=== PATIENT | female | born 1995 | race African-American/Black ===

== ENCOUNTER 2017-12-08 11:18 | Emergency (ER) | payer BC, OTHER ==
[~2017-12-08] VITALS: Ht 175.3 cm; Wt 76.1 kg
[2017-12-08 11:21] VITALS: TEMP 36.6; Ht 175.3 cm; Wt 76.1 kg
[2017-12-08] MEDS ORDERED: DOCU100C31 PO (11:55)
[2017-12-08] MEDS ORDERED: CHOL400T PO (11:55)
[2017-12-08] MEDS ORDERED: FERR1TAB23 PO (11:55)
--- NOTE | 2017-12-08 12:02 | EMERGENCY ROOM VISIT NOTE ---
History Report prepared by Karla: Marshal Farley Under the Supervision of: Dr. Nixon Griffin M.D. First contact with patient: 11:37 Chief Complaint: OTHER COMPLAINT Stated Complaint: FATIGUE, LIGHT HEADED, NAUSEA Nursing Triage Summary: Pt c/o "symptoms of anemia", fatigue, nausea, lightheaded spells. reports hx of anemia History of Present Illness The patient is a 22 year old black female with no past medical or surgical history who presents to the ED with a cc of persistent fatigue and light headedness beginning a couple of months ago. Positive nausea and abdominal cramping mostly likely related to her menstrual period. Negative history of sickle cell anemia, use of blood thinners, recent sexual intercourse, and trauma. She was seen at [facility] last week and was told that she has low hemoglobin and hematocrit levels. She notes that she is currently on her periods and goes through about 3-4 tampons/pads per day, and her menstrual periods usually last 3 -5 days. Source of History: patient Onset: a couple of months ago Position: other (global) Quality: other (fatigue and light headedness) Timing: other (persistent) Associated Symptoms: + nausea, + abdominal pain Review of Systems See HPI for pertinent positives and negatives. A total of ten systems were reviewed and were otherwise negative. Family History Heart disease Hypertension Social History Smoking Status: Never Smoker Marital Status: single Occupation Status: [employer] student Current/Historical Medications Scheduled Cholecalciferol (Vitamin D), 400 UNITS PO DAILY Docusate Sodium (Docusate Sodium), 100 MG PO DAILY Ferrous Sulfate (Iron), 325 MG PO DAILY Allergies Coded Allergies: No Known Allergies (Unverified , 12/08/17) Physical Exam Vital Signs Date Time Temp Pulse Resp B/P (MAP) Pulse Ox O2 Delivery O2 Flow Rate FiO2 12/08/17 14:30 70 18 124/78 100 Room Air 12/08/17 13:43 77 12/08/17 13:30 68 18 127/79 100 Room Air 12/08/17 13:29 100 Room Air 12/08/17 11:21 36.6 78 18 143/78 100 Room Air Physical Exam GENERAL: Awake, alert, well-appearing, NAD HENT: Normocephalic, atraumatic. EYES: Normal conjunctiva. Sclera non-icteric. NECK: Supple. No nuchal rigidity. FROM. RESPIRATORY: CTAB, no rhonchi, wheezing, crackles CARDIAC: RRR, no MRG ABDOMEN: Suprapubic discomfort. Soft, ND, BS+ MSK: No chest wall TTP, no LE edema NEURO: GCS 15, CN 2-12 intact, moves all 4s on command SKIN: No rash or jaundice noted. Medical Decision & Procedures Laboratory Results 12/08/17 12:15 Red Blood Count 4.47, Mean Corpuscular Volume 64.9, Mean Corpuscular Hemoglobin 17.9, Mean Corpuscular Hemoglobin Concent 27.6, Mean Platelet Volume , Neutrophils (%) (Auto) 55.9, Lymphocytes (%) (Auto) 34.6, Monocytes (%) (Auto) 6.6, Eosinophils (%) (Auto) 2.3, Basophils (%) (Auto) 0.4, Neutrophils # (Auto) 3.13, Lymphocytes # (Auto) 1.94, Monocytes # (Auto) 0.37, Eosinophils # (Auto) 0.13, Basophils # (Auto) 0.02 12/08/17 12:15 Test 12/08/17 12:15 12/08/17 13:03 12/08/17 13:40 White Blood Count 5.60 K/uL (4.8-10.8) Red Blood Count 4.47 M/uL (4.2-5.4) Hemoglobin 8.0 g/dL (12.0-16.0) Hematocrit 29.0 % (37-47) Mean Corpuscular Volume 64.9 fL (80-100) Mean Corpuscular Hemoglobin 17.9 pg (25-34) Mean Corpuscular Hemoglobin Concent 27.6 g/dl (32-36) Platelet Count 332 K/uL (130-400) Mean Platelet Volume fL (7.4-10.4) Neutrophils (%) (Auto) 55.9 % Lymphocytes (%) (Auto) 34.6 % Monocytes (%) (Auto) 6.6 % Eosinophils (%) (Auto) 2.3 % Basophils (%) (Auto) 0.4 % Neutrophils # (Auto) 3.13 K/uL (1.4-6.5) Lymphocytes # (Auto) 1.94 K/uL (1.2-3.4) Monocytes # (Auto) 0.37 K/uL (0.11-0.59) Eosinophils # (Auto) 0.13 K/uL (0-0.5) Basophils # (Auto) 0.02 K/uL (0-0.2) RDW Standard Deviation fL (36.4-46.3) RDW Coefficient of Variation % (11.5-14.5) Immature Granulocyte % (Auto) 0.2 % Immature Granulocyte # (Auto) 0.01 K/uL (0.00-0.02) Platelet Estimate NORMAL Giant Platelets 2+ Polychromasia 1+ Hypochromasia PRESENT Microcytosis PRESENT Ovalocytes 1+ Acanthocytes 1+ Prothrombin Time 10.7 SECONDS (9.0-12.0) Prothromb Time International Ratio 1.0 (0.9-1.1) Activated Partial Thromboplast Time 24.7 SECONDS (21.0-31.0) Partial Thromboplastin Ratio 1.0 Anion Gap 8.0 mmol/L (3-11) Est Creatinine Clear Calc Drug Dose 155.1 ml/min Estimated GFR () > 150.0 Estimated GFR (Non- 130.3 BUN/Creatinine Ratio 21.7 (10-20) Calcium Level 9.4 mg/dl (8.5-10.1) Total Bilirubin 0.6 mg/dl (0.2-1) Direct Bilirubin 0.2 mg/dl (0-0.2) Aspartate Amino Transf (AST/SGOT) 15 U/L (15-37) Alanine Aminotransferase (ALT/SGPT) 16 U/L (12-78) Alkaline Phosphatase 42 U/L (45-117) Total Protein 8.6 gm/dl (6.4-8.2) Albumin 4.1 gm/dl (3.4-5.0) Thyroid Stimulating Hormone (TSH) 2.420 uIu/ml (0.300-4.500) Urine Color YELLOW Urine Appearance CLEAR (CLEAR) Urine pH 7.0 (4.5-7.5) Urine Specific Rombauer 1.009 (1.000-1.030) Urine Protein NEG (NEG) Urine Glucose (UA) NEG (NEG) Urine Ketones NEG (NEG) Urine Occult Blood 2+ (NEG) Urine Nitrite NEG (NEG) Urine Bilirubin NEG (NEG) Urine Urobilinogen NEG (NEG) Urine Leukocyte Esterase NEG (NEG) Urine WBC (Auto) 0 /hpf (0-5) Urine RBC (Auto) >30 /hpf (0-4) Urine Hyaline Casts (Auto) 0 /lpf (0-5) Urine Epithelial Cells (Auto) 5-10 /lpf (0-5) Urine Bacteria (Auto) NEG (NEG) Urine Test NEG (NEG) Iron Level 190 mcg/dl (35-150) Total Iron Binding Capacity 380 mcg/dl (250-450) Ferritin 5.7 ng/ml (8.0-388.0) Laboratory results reviewed by me ECG Indication: other (fatigue and light headed) Rate (beats per minute): 67 Rhythm: normal sinus Findings: other (Normal intervals, normal axis, no STS changes or TWI) Change: Patient's electrocardiogram interpreted by me. ED Course 1137: The patient was evaluated in room B11. A complete history and physical exam was performed. 1320: I discussed the patient's case with Dr. Cook, Hematology, and he recommended the studies to get, and he is going to follow up with the patient as an outpatient. 1349: I reevaluated the patient. Discussed results and discharge instructions: she verbalized understanding and agreement. The patient is ready for discharge. Medical Decision The patient is a 22 year old black female with no past medical or surgical history who presents to the ED with a cc of persistent fatigue and light headedness beginning a couple of months ago. Differential diagnosis: Etiologies such as benign positional vertigo, dehydration, hypovolemia, anemia, tumor, infection, hypoglycemia, electrolyte abnormalities, cardiac sources, intracerebral event, toxicologic, neurologic, as well as others were entertained. Patient was seen and evaluated the bedside. Patient has complained of some chronic fatigue and lightheadedness. Patient was seen and evaluated at [facility]. Patient was referred here due to concern with her blood counts. I did obtain these findings. The patient did have a CBC as well as some iron studies any peripheral smear. Patient's RYANN globin was 7.1. Patient did have a low ferritin. Patient's smear did show target cells and teardrop cells. Patient did have repeat blood work completed here. The patient 's hemoglobin was 8. The patient does have some vaginal bleeding hour this sounds chronic in nature. Patient patient has only been going through 3 pads per day. Patient likely does have an element of symptom medic anemia. The patient does have a low MCV with the patient started taking iron supplements. Patient was told she may increase this with some red meat in her diet. I did discuss the case with the on-call fiberglass container winding operator. I did also discuss the patient with the case mgr in order to arrange follow-up with hematology. Additional studies were ordered and sent to the lab. Patient has not had any issues here in the department. Patient does not have any tachycardia, tachypnea , or hypoxia. Patient was deemed suitable for outpatient follow-up and treatment at this time. Patient was given strict follow-up, discharge, and return precautions. All questions were answered. Patient was deemed suitable for outpatient follow-up at this time. Patient agreed with the plan of care and was safely discharged home. The chart was completed utilizing [employer] Speech voice recognition software. Grammatical errors, random word insertions, pronoun errors, and incomplete sentences are an occasional consequence of this system due to software limitations, ambient noise, and hardware issues. Any formal questions or concerns about the content, text, or information contained within the body of this dictation should be directly addressed to the physician for clarification. Medication Reconcilliation Current Medication List: was personally reviewed by me Blood Pressure Screening Patient's blood pressure: Normal blood pressure Consults Time Called: 1315 Consulting Physician: Dr. Cook, Hematology Returned Call: 1320 I discussed the patient's case with Dr. Cook, Hematology, and he recommended the studies to get, and he is going to follow up with the patient as an outpatient. Impression Primary Impression: Anemia Additional Impression: Fatigue Scribe Attestation The scribe's documentation has been prepared under my direction and personally reviewed by me in its entirety. I confirm that the note above accurately reflects all work, treatment, procedures, and medical decision making performed by me. Departure Information Dispostion Home / Self-Care Referrals No Doctor, Assigned (PCP) Forms HOME CARE DOCUMENTATION FORM, IMPORTANT VISIT INFORMATION, WORK / SCHOOL INSTRUCTIONS Patient Instructions Anemia, ED Anemia Iron Deficiency, [facility] Additional Instructions Please return to the emergency department if you have worsening or recurrent symptoms not amenable to at-home treatment. Please call for a follow-up appointment with her primary care physician. Please take your medications as prescribed. If you have other concerns and/or complaints please feel free to also call your primary care physician's office or return the ED for further evaluation, management, and treatment. Please keep her follow-up appointment with the fiberglass container winding operator. Continue to take your iron supplements. You may take 600 mg Ibuprofen every 6 hours as needed for pain with food for no more than 2 consecutive days. You may take tylenol 1000 mg every 6 hours as needed for pain. You may take motrin and tylenol separately or at the same time. Take your medications as prescribed. You have been examined and treated today on an emergency basis only. This is not a substitute for, or an effort to provide, complete comprehensive medical care. It is impossible to recognize and treat all injuries or illnesses in a single emergency department visit. It is therefore important that you follow up closely with [facility], your PCP, and/or your specialist(s). Call as soon as possible for an appointment. Thank you for your time and consideration. I look forward to speaking with you again soon. Please don't hesitate to call us if you have any questions. Problem Qualifiers Primary Impression: Anemia Anemia type: unspecified type Qualified Codes: D64.9 - Anemia, unspecified Additional Impression: Fatigue Fatigue type: unspecified Qualified Codes: R53.83 - Other fatigue
[2017-12-08 12:42] LABS: PTT PATIENT 24.7 SECONDS (21.0-31.0)
[2017-12-08 12:51] LABS: ALBUMIN 4.1 gm/dl (3.4-5.0); ALT/SGPT 16 U/L (12-78); BLOOD UREA NITROGEN 13 mg/dl (7-18); CALCIUM 9.4 mg/dl (8.5-10.1); CARBON DIOXIDE 24 mmol/L (21-32); GLUCOSE 86 mg/dl (70-99); POTASSIUM 3.7 mmol/L (3.5-5.1); SODIUM 137 mmol/L (136-145)
[2017-12-08 13:02] LABS: ALKALINE PHOSPHATASE 42 U/L (45-117); AST/SGOT 15 U/L (15-37); BASO % 0.4 %; BASO ABS # 0.02 K/uL (0-0.2); EOS % 2.3 %; EOS ABS # 0.13 K/uL (0-0.5); IG# 0.01 K/uL (0.00-0.02); LYMPH % 34.6 %; LYMPH ABS # 1.94 K/uL (1.2-3.4); MEAN CELL VOLUME 64.9 fL (80-100); MEAN CORPUSCULAR HEMOGLOBIN 17.9 pg (25-34); MEAN CORPUSCULAR HGB CONC 27.6 g/dl (32-36); MONO % 6.6 %; MONO ABS # 0.37 K/uL (0.11-0.59); NEUT % 55.9 %; NEUT ABS # 3.13 K/uL (1.4-6.5); PLATELET COUNT 332 K/uL (130-400); TOTAL PROTEIN 8.6 gm/dl (6.4-8.2)
[2017-12-08 13:29] VITALS: O2SAT 100
[2017-12-08 14:30] VITALS: BP 124/78; PULSE 70; O2SAT 100
== END 2017-12-08 15:03 | disposition home or self-care (01) ==
LOC: C.EDB 11:20
DX: D64.9 Anemia, unspecified (principal); R53.83 Other fatigue; Z82.49 Family history of ischemic heart disease and other diseases of the circulatory system; Z79.899 Other long term (current) drug therapy